=== PATIENT | male | born 1960 | race African-American/Black ===

== ENCOUNTER 2021-12-30 15:51 | Observation (INO) ==
[2021-12-30] MEDS ORDERED: hydrALAZINE 20 MG/1 ML VIAL IV STA (16:34)
[2021-12-30 16:52] LABS: Alanine Aminotransferase 27 U/L (16-61); Albumin 3.7 G/DL (3.4-5.0); Alkaline Phosphatase 67 U/L (45-117); Aspartate Amino Transferase 17 U/L (0-37); Bilirubin,Total < 0.39 MG/DL (0.20-1.00); Blood Urea Nitrogen 20 MG/DL (7-18); Calcium 9.3 MG/DL (8.5-10.1); Carbon Dioxide 25 MMOL/L (21-32); Chloride 113 MMOL/L (98-107); Glucose 111 MG/DL (74-106); Potassium 4.1 MMOL/L (3.5-5.1); Sodium 143 MMOL/L (136-145); Total Protein 6.7 G/DL (6.4-8.2)
[2021-12-30 17:34] LABS: Basophils # 0.1 10*3/uL (0.0-0.2); Basophils % 0.9 % (0.0-0.8); Eosinophils # 0.1 10*3/uL (0.0-0.87); Hematocrit 46.5 VOL% (42.0-52.0); Hemoglobin 14.9 GM/DL (14.0-18.0); Immature Granulocytes % 0.2 %; Immature Granulocytes Absolute 0.01 #; Lymphocytes # 2.9 10*3/uL (1.4-4.0); Lymphocytes % 52.7 % (21.2-54.2); Mean Corpuscular Volume 89.4 FL (87-102); Mean Platelet Volume 11.5 FL (9.6-12.0); Monocytes # 0.7 10*3/uL (0.11-0.8); Monocytes % 12.2 % (1.7-12.7); Platelet Count 202 T/CUMM (130-400); Red Cell Distribution Width 13.2 % (9.3-17.3); White Blood Count 5.5 T/CUMM (4-12)
[2021-12-30 17:59] LABS: Eosinophils 4 % (0-10); Lymphocytes 55 % (20-55); Total Cells Counted 100
[2021-12-30 18:00] LABS: Atypical Lymphocytes Few; Platelet Estimate Adequate
[2021-12-30] MEDS ORDERED: ACETAMINOPHEN 325 MG TABLET PO PRN (18:37)
[2021-12-30] MEDS ORDERED: ONDANSETRON 4 MG/2 ML VIAL IV PRN (18:37)
[2021-12-30] MEDS ORDERED: hydrALAZINE 20 MG/1 ML VIAL IV PRN (18:37)
[2021-12-30] MEDS ORDERED: ALUM/MAG/SIMETH/LIDO VISC 1:1 30 ML BOTTLE PO STA (18:40)
[2021-12-30] MEDS ORDERED: NITROGLYCERIN SL 0.4 MG TABLET SL PRN (18:40)
[2021-12-30] MEDS ORDERED: ALBUTEROL/IPRATROPIUM 3 ML NEB RESP TX PRN (18:41)
[2021-12-30] MEDS ORDERED: cefTRIAXone 1,000 MG VIAL ONE (18:53)
[2021-12-30] MEDS ORDERED: DEXAMETHASONE 10 MG/1 ML VIAL ONE (18:53)
[2021-12-30 19:01] LABS: Bilirubin,Urine Negative (Negative); Blood, Urine Negative (Negative); Glucose,Urine (UA) Negative (Negative); Ketones,Urine Negative (Negative); Nitrite,Urine Negative (Negative); Protein,Urine Negative (Negative); Urine Appearance Clear (Clear); Urine Color Yellow (Yellow); Urine Specific Gravity 1.025 (1.001-1.035)
[2021-12-30 19:02] LABS: Urine Urobilinogen 0.2 eU/dL (<2.0)
[2021-12-30 19:09] LABS: Mucus,Urine Occasional /LPF (Occasional); RBC,Urine 7 /HPF (0-4)
[2021-12-30 19:19] LABS: Barbiturates Screen,Urine Negative (Negative); Benzodiazepines Screen,Urine Negative (Negative); Cannabinoid Screen,Urine Negative (Negative); Opiate Screen,Urine Negative (Negative); Phencyclidine Screen,Urine Negative (Negative)
[2021-12-30] MEDS: hydrALAZINE 25 MG TABLET PO SCH (20:40)
[2021-12-30] MEDS: INSULIN REGULAR 100 UNIT/ML SUBCUT SCH (20:40)
[2021-12-30] MEDS: carvediloL 12.5 MG TABLET PO SCH (20:40)
[2021-12-30] MEDS: ENOXAPARIN 40 MG/0.4 ML SYRINGE SUBCUT SCH (20:40)
[2021-12-31 05:06] LABS: Basophils % 0.6 % (0.0-0.8); Eosinophils # 0.1 10*3/uL (0.0-0.87); Eosinophils % 2.3 % (0.00-10.9); Hematocrit 47.2 VOL% (42.0-52.0); Hemoglobin 15.2 GM/DL (14.0-18.0); Immature Granulocytes % 0.2 %; Immature Granulocytes Absolute 0.01 #; Lymphocytes # 2.3 10*3/uL (1.4-4.0); Lymphocytes % 48.5 % (21.2-54.2); Mean Corpuscular HGB Conc 32.2 GM/DL (32-36); Mean Corpuscular Volume 89.1 FL (87-102); Mean Platelet Volume 11.2 FL (9.6-12.0); Monocytes # 0.7 10*3/uL (0.11-0.8); Monocytes % 14.2 % (1.7-12.7); Neutrophils % 34.2 % (38.7-73.9); Platelet Count 198 T/CUMM (130-400); Red Cell Distribution Width 13.2 % (9.3-17.3); White Blood Count 4.8 T/CUMM (4-12)
[2021-12-31 05:32] LABS: Albumin 3.4 G/DL (3.4-5.0); Bilirubin,Total 0.4 MG/DL (0.20-1.00); Calcium 8.9 MG/DL (8.5-10.1); Potassium 3.5 MMOL/L (3.5-5.1); Risk Ratio 4.21; Thyroid Stimulating Hormone 1.62 uIU/ml (0.358-3.74); Total Protein 6.4 G/DL (6.4-8.2); VLDL Cholesterol 14.4 MG/DL
[2021-12-31 05:34] LABS: Eosinophils 2 % (0-10); Lymphocytes 46 % (20-55); Platelet Estimate Adequate; Total Cells Counted 100
[2021-12-31 05:35] LABS: Atypical Lymphocytes Few
[2021-12-31] MEDS: INSULIN REGULAR 100 UNIT/ML SUBCUT SCH ×4 (08:59→21:52)
[2021-12-31] MEDS ORDERED: LOSARTAN 25 MG TABLET PO SCH (09:00)
[2021-12-31] MEDS ORDERED: GLUCAGON 1 MG VIAL IM PRN (11:40)
[2021-12-31] MEDS ORDERED: DEXTROSE 10% 250 ML BAG IV PRN (11:40)
[2021-12-31] MEDS: DAPAGLIFLOZIN 10 MG TABLET PO SCH (12:16)
[2021-12-31] MEDS: carvediloL 12.5 MG TABLET PO SCH ×2 (12:16→21:16)
[2021-12-31] MEDS: ASPIRIN CHEW 81 MG TABLET PO SCH (12:16)
[2021-12-31] MEDS: PANTOPRAZOLE 40 MG TABLET PO SCH (12:16)
[2021-12-31] MEDS ORDERED: LOSARTAN 25 MG TABLET PO ONE (12:26)
[2021-12-31] MEDS: hydrALAZINE 25 MG TABLET PO SCH (13:15)
[2021-12-31] MEDS: ENOXAPARIN 40 MG/0.4 ML SYRINGE SUBCUT SCH (21:16)
[2022-01-01 05:22] LABS: Osmolality,Calculated 281.3 MOS/KG (273-304); Potassium 3.9 MMOL/L (3.5-5.1)
[2022-01-01] MEDS ORDERED: LOSARTAN 50 MG TABLET PO SCH (09:00)
[2022-01-01] MEDS: carvediloL 12.5 MG TABLET PO SCH (10:12)
[2022-01-01] MEDS: ASPIRIN CHEW 81 MG TABLET PO SCH (10:12)
[2022-01-01] MEDS: INSULIN REGULAR 100 UNIT/ML SUBCUT SCH ×2 (10:13→11:32)
[2022-01-01] MEDS: PANTOPRAZOLE 40 MG TABLET PO SCH (10:13)
[2022-01-01] MEDS: DAPAGLIFLOZIN 10 MG TABLET PO SCH (10:13)
[2022-01-01 11:57] VITALS: BP 139/69
== END 2022-01-01 12:42 | disposition home or self-care (01) ==
LOC: N.ED 15:51 → N.EDINP 15:51 → N.2W 19:24 → N.TELES 01-01 06:08 → N.TELEN 01-01 06:12
PROVIDERS: ADMIT Internal Medicine; ATTEND Internal Medicine